=== PATIENT | female | born 1960 | race Caucasian/White ===

== ENCOUNTER 2020-05-04 14:36 | Emergency (ER) | payer BC ==
[2020-05-04 15:23] VITALS: BP 147/79; PULSE 89
--- NOTE | 2020-05-04 17:08 | EDM.PDOC ---
ED HPI GENERAL MEDICAL PROBLEM - General Chief Complaint: Gastrointestinal Problem Stated Complaint: BOWEL ISSUES Time Seen by Provider: 05/04/20 16:00 Source of Information: Reports: Patient History Limitations: Reports: No Limitations - History of Present Illness INITIAL COMMENTS - FREE TEXT/NARRATIVE: This is a 59-year-old female who presents with concerns of nausea vomiting, abdominal pain, and blood-tinged stool. She reports that she ate seafood yesterday evening. Then around midnight she developed nausea and vomiting followed by diffuse brown diarrhea. Towards the end of the evening into early this morning she noticed persistent blood-tinged to the stool. It did not turn the toilet water red. There is no tarry stool or melena. She otherwise feels like her symptoms are improving now, minimal pain, tolerating p.o. She has no fevers or chills. She is not anticoagulated. She has no comorbidities. - Related Data Allergies Allergy/AdvReac Type Severity Reaction Status Date / Time No Known Allergies Allergy Verified 05/04/20 15:27 Past Medical History - Past Surgical History GI Surgical History: Reports: Colonoscopy Female Surgical History: Reports: Hysterectomy Social & Family History - Tobacco Use Tobacco Use Status *Q: Never Tobacco User ED ROS GENERAL - Review of Systems Review Of Systems: See Below Constitutional: Reports: No Symptoms HEENT: Reports: No Symptoms Respiratory: Reports: No Symptoms Cardiovascular: Reports: No Symptoms Endocrine: Reports: No Symptoms GI/Abdominal: Reports: Diarrhea, Hematochezia, Vomiting : Reports: No Symptoms Musculoskeletal: Reports: No Symptoms Skin: Reports: No Symptoms Neurological: Reports: No Symptoms Psychiatric: Reports: No Symptoms Hematologic/Lymphatic: Reports: No Symptoms Immunologic: Reports: No Symptoms ED EXAM, GI/ABD - Physical Exam Exam: See Below Exam Limited By: No Limitations General Appearance: Alert, No Apparent Distress Ears: Normal External Exam Nose: Normal Inspection Throat/Mouth: Normal Inspection Head: Atraumatic, Normocephalic Neck: Normal Inspection Respiratory/Chest: No Respiratory Distress Cardiovascular: Regular Rate, Rhythm GI/Abdominal Exam: Soft, Non-Tender, No Distention Back Exam: Normal Inspection Extremities: Normal Inspection Neurological: Alert, Oriented, Normal Cognition, Normal Gait Psychiatric: Normal Affect, Normal Mood Skin Exam: Warm, Dry Course - Vital Signs Last Recorded V/S: Last Vital Signs Temp 36.3 C 05/04/20 15:34 Pulse 89 05/04/20 15:34 Resp 16 05/04/20 15:34 BP 147/79 H 05/04/20 15:34 Pulse Ox 98 05/04/20 15:34 - Re-Assessments/Exams Free Text/Narrative Re-Assessment/Exam: This is a 59-year-old female who presents with concerns of blood-tinged stool. This in the setting of likely gastroenteritis after seafood dinner last night. Overall symptoms have been improving. She has stable vitals and a reassuring physical exam. She did show me stool in the toilet here in the hospital, there is very small amount of blood tinge around it but no staining of the toilet bowl water. She is not anticoagulated. I suspect she has some mild hematochezia from her gastroenteritis. Given her overall picture of stability I think it safe to follow this as an outpatient. She knows to advance her diet slowly and return for worsening symptoms or signs of GI bleeding. 05/04/20 17:36 Departure - Departure Time of Disposition: 17:03 Disposition: Home, Self-Care 01 Clinical Impression: Gastroenteritis, Bloody stool - Discharge Information *PRESCRIPTION DRUG MONITORING PROGRAM REVIEWED*: No *COPY OF PRESCRIPTION DRUG MONITORING REPORT IN PATIENT SARAH: No Instructions: Food Choices to Help Relieve Diarrhea, Adult, Food Poisoning, [id number] Referrals: Rebekah Maya CNM [Primary Care Provider] - Forms: ED Department Discharge Additional Instructions: You likely have a small amount of blood in your stool from a GI infection. Since you are overall appearing well, with normal vitals and re-assuring exam, please continue to follow your symptoms at home as discussed. If your symptoms worsen (you have increasingly bloody or black tarry stool), please see a physici an. Sepsis Event Note (ED) - Evaluation Sepsis Screening Result: No Definite Risk - Focused Exam Vital Signs: Vital Signs Temp Pulse Resp BP Pulse Ox 05/04/20 15:34 36.3 C 89 16 147/79 H 98 05/04/20 15:22 36.3 C 89 16 147/79 H 98
== END 2020-05-04 17:28 | disposition home or self-care (01) ==
LOC: JP.ED 14:36
DX: K52.9 Noninfective gastroenteritis and colitis, unspecified (principal); R19.5 Other fecal abnormalities
CPT/HCPCS: 99283

== ENCOUNTER 2021-10-15 05:24 | Inpatient (IN) | payer BC ==
[2021-10-15] MEDS ORDERED: Sodium Chloride 0.9% 10 ML Syringe FLUSH PRN (06:16)
[2021-10-15] MEDS: Sodium Chloride 0.9% 1,000 ML IV SCH ×4 (06:27→23:04)
[2021-10-15] MEDS ORDERED: Lactated Ringers 1,000 ML IV SCH (06:30)
[2021-10-15 06:38] LABS: CORONAVIRUS COVID-19 NAA NEGATIVE (NEGATIVE)
[2021-10-15] MEDS ORDERED: Dexamethasone 4 MG/ML SDV IVPUSH ONE (06:42)
[2021-10-15] MEDS ORDERED: Vancomycin 1 GM SDV IV SCH (09:00)
[2021-10-15] MEDS: Acetaminophen 325 MG Tab PO PRN ×2 (09:19→18:01)
[2021-10-15] MEDS ORDERED: Piperacillin/Tazobactam 3.375 GM in Sodium Chloride 0.9% 50 ML IV SCH (09:30)
[2021-10-15] MEDS: Piperacillin/Tazobactam/Dext 3.375 GM in Premix Bag 1 BAG IV SCH ×3 (09:34→20:52)
[2021-10-15] MEDS: Enoxaparin 40 MG/0.4 ML Syringe SUBCUT SCH (09:34)
[2021-10-15] MEDS: Levofloxacin/Dextrose 5%-Water 750 MG in Premix Bag 1 BAG IV SCH (10:14)
[2021-10-15] MEDS ORDERED: Vancomycin 1.6 GM in Sodium Chloride 0.9% 250 ML IV ONE (12:00)
[2021-10-15] MEDS ORDERED: Albuterol 0.083% 2.5 MG/3 ML Neb Soln NEB PRN (13:55)
[2021-10-15] MEDS: Codeine/guaiFENesin 10-100 MG/5 ML Syrup 5 ML Cup PO PRN ×2 (16:52→23:04)
[2021-10-16] MEDS: Piperacillin/Tazobactam/Dext 3.375 GM in Premix Bag 1 BAG IV SCH ×4 (05:08→20:43)
[2021-10-16] MEDS: Acetaminophen 325 MG Tab PO PRN ×2 (05:14→14:37)
[2021-10-16] MEDS ORDERED: Potassium Chloride 20 MEQ Tab.ER PO ONE ×2 (09:00→17:00)
[2021-10-16] MEDS: Enoxaparin 40 MG/0.4 ML Syringe SUBCUT SCH (09:45)
[2021-10-16] MEDS: Levofloxacin/Dextrose 5%-Water 750 MG in Premix Bag 1 BAG IV SCH (10:59)
[2021-10-16] MEDS: Sodium Chloride 0.9% 1,000 ML IV SCH (11:17)
[2021-10-16] MEDS ORDERED: Iopamidol 755 Mg/ML 100 ML Bottle IV SCH (13:15)
[2021-10-16] MEDS ORDERED: Sodium Chloride 0.9% 100 ML IV SCH (13:15)
[2021-10-16] MEDS ORDERED: diphenhydrAMINE 50 MG/ML SDV IVPUSH ONE (15:00)
[2021-10-16] MEDS ORDERED: methylPREDNISolone Sodium Succinate 40 MG/1 ML SDV IVPUSH ONE (15:00)
[2021-10-17] MEDS: Piperacillin/Tazobactam/Dext 3.375 GM in Premix Bag 1 BAG IV SCH ×2 (04:23→09:52)
[2021-10-17] MEDS: Enoxaparin 40 MG/0.4 ML Syringe SUBCUT SCH (09:38)
[2021-10-17] MEDS: Codeine/guaiFENesin 10-100 MG/5 ML Syrup 5 ML Cup PO PRN ×3 (09:57→22:15)
[2021-10-17] MEDS: Acetaminophen 325 MG Tab PO PRN ×3 (09:57→22:14)
[2021-10-17] MEDS: Levofloxacin/Dextrose 5%-Water 750 MG in Premix Bag 1 BAG IV SCH (10:53)
[2021-10-17] MEDS ORDERED: Benzonatate 100 MG Cap PO PRN (14:09)
[2021-10-18] MEDS: Enoxaparin 40 MG/0.4 ML Syringe SUBCUT SCH (09:16)
[2021-10-18] MEDS: Levofloxacin/Dextrose 5%-Water 750 MG in Premix Bag 1 BAG IV SCH (09:17)
[2021-10-19] MEDS: Enoxaparin 40 MG/0.4 ML Syringe SUBCUT SCH (09:15)
[2021-10-19] MEDS: Levofloxacin/Dextrose 5%-Water 750 MG in Premix Bag 1 BAG IV SCH (09:16)
[2021-10-20] MEDS: Acetaminophen 325 MG Tab PO PRN (02:49)
[2021-10-20 08:16] VITALS: BP 128/65; PULSE 88
[2021-10-20] MEDS: Levofloxacin/Dextrose 5%-Water 750 MG in Premix Bag 1 BAG IV SCH (09:22)
[2021-10-20] MEDS: Enoxaparin 40 MG/0.4 ML Syringe SUBCUT SCH (09:22)
== END 2021-10-20 12:55 | disposition home or self-care (01) | DRG 720 ==
LOC: JP.ED 05:24 → JP.ICU 07:05
PROVIDERS: ADMIT Family Medicine; ATTEND Family Medicine
DX: A40.9 Streptococcal sepsis, unspecified (principal); J13 Pneumonia due to Streptococcus pneumoniae; J96.01 Acute respiratory failure with hypoxia; E87.1 Hypo-osmolality and hyponatremia; Z20.822 Contact with and (suspected) exposure to COVID-19
CPT/HCPCS: 0241U; 36415; 71045; 71275; 71275-26; 80048; 80053; 82728; 83605; 83615; 84132; 84145; 85025; 85027; 85379; 86140; 87040; 87184; 94640; 96374; 99283; 99285-25; A9270-GY; J1100; J1200; J1650; J1956; J2543; J2920; J3370; J3490; J7030; J7050; Q9967

== ENCOUNTER 2023-04-06 06:51 | Day surgery (SDC) | payer BC ==
[2023-04-06] MEDS ORDERED: Midazolam 1 MG/ML 2 ML SDV ONE (07:00)
[2023-04-06] MEDS ORDERED: Propofol 200 MG/20 ML SDV ONE (07:00)
[2023-04-06] MEDS ORDERED: fentaNYL 50 MCG/ML SDV ONE (07:00)
[2023-04-06] MEDS ORDERED: Lactated Ringers 1,000 ML IV SCH (07:30)
[2023-04-06 09:33] VITALS: BP 124/62; PULSE 49
== END 2023-04-06 09:35 | disposition home or self-care (01) ==
LOC: JP.SDS 06:51
PROVIDERS: ATTEND Student in an Organized Health Care Education/Training Program
DX: Z12.11 Encounter for screening for malignant neoplasm of colon (principal); K57.30 Diverticulosis of large intestine without perforation or abscess without bleeding; K64.4 Residual hemorrhoidal skin tags; Z80.0 Family history of malignant neoplasm of digestive organs; Z88.1 Allergy status to other antibiotic agents
CPT/HCPCS: 45378; J2250; J2704; J3010; J7120

== ENCOUNTER 2024-11-27 14:58 | Inpatient (IN) | payer BC ==
[2024-11-27] MEDS: Acetaminophen 325 MG Tab PO ONE (15:55)
[2024-11-27 16:58] LABS: HEMATOCRIT 39.5 % (34.3-46.0); HEMOGLOBIN 13.7 g/dL (11.2-15.5); MEAN CORPUSCULAR HEMOGLOBIN 32.4 pg (31.6-35.5); MEAN CORPUSCULAR HGB CONC 34.7 g/dL (31.6-35.5); MEAN CORPUSCULAR VOLUME 93.4 fL (81.4-99.0); PLATELET COUNT,PLT 131 K/uL (130-375); RED BLOOD CELL COUNT 4.23 M/uL (3.77-5.24); WHITE BLOOD CELL COUNT,WBC 4.8 K/uL (3.2-11.0)
[2024-11-27] MEDS: Iopamidol 755 Mg/ML 100 ML Bottle IV SCH (17:04)
[2024-11-27] MEDS: Sodium Chloride 0.9% 100 ML IV SCH (17:04)
[2024-11-27] MEDS: Sodium Chloride 0.9% 10 ML Syringe FLUSH ONE (17:05)
[2024-11-27] MEDS: Sodium Chloride 0.9% 1,000 ML IV ONE (17:21)
[2024-11-27 17:22] LABS: BAND ABSOLUTE MAN 0.72 K/uL; BAND PERCENT MAN 15 % (5-11); LYMPHOCYTES ABSOLUTE MAN 0.24 K/uL (0.8-3.3); LYMPHOCYTES PERCENT MAN 5 % (24-44); METAMYELOCYTE PERCENT MAN 2 %; MONOCYTES PERCENT MAN 2 % (2-6); NEUTROPHILS ABSOLUTE MAN 3.65 K/uL (1.0-7.6); SEG NEUTROPHILS PERCENT MAN 76 % (36-66)
[2024-11-27 17:28] LABS: ALANINE AMINOTRANSFERASE,ALT 58 U/L (12-78); ALBUMIN 3.3 g/dL (3.4-5.0); ALKALINE PHOSPHATASE 109 U/L (46-116); ASPARTATE AMNIOTRANSFERASE,AST 40 U/L (15-37); BILIRUBIN TOTAL 0.6 mg/dL (0.2-1.0); BLOOD UREA NITROGEN,BUN 12 mg/dL (7-18); CALCIUM 8.8 mg/dL (8.5-10.1); CARBON DIOXIDE,CO2 24 mmol/L (21-32); CHLORIDE,CL 96 mmol/L (100-108); CREATININE 0.8 mg/dL (0.6-1.0); EST CRCL DRUG DOSING (CG) 64.77 mL/min; ESTIMATED GFR 83 mL/min (>60); GLUCOSE RANDOM 163 mg/dL (74-106); POTASSIUM,K 3.9 mmol/L (3.6-5.2); PROTEIN TOTAL,TP 7.2 g/dL (6.4-8.2); SODIUM,NA 128 mmol/L (140-148)
[2024-11-27 17:32] LABS: A/G RATIO 0.9 (1.2-2.2); ANION GAP 11.9 mmol/L (5.0-14.0)
[2024-11-27] MEDS: Azithromycin 250 MG Tab PO SCH (17:46)
[2024-11-27] MEDS: cefTRIAXone 1 GM in Sodium Chloride 0.9% 50 ML IV ONE (17:46)
[2024-11-27] MEDS: Ibuprofen 600 MG Tab PO ONE (17:46)
[2024-11-27] MEDS ORDERED: LORazepam 2 MG/ML SDV IVPUSH PRN (18:03)
[2024-11-27] MEDS ORDERED: Ondansetron 4 MG/2 ML SDV IV PRN (18:03)
[2024-11-27] MEDS ORDERED: Sennosides/Docusate Sodium 50-8.6 MG Tab PO PRN (18:03)
[2024-11-27] MEDS ORDERED: Ondansetron 4 MG Tab.DIS PO PRN (18:03)
[2024-11-27] MEDS ORDERED: Morphine 2 MG/ML SYRINGE IVPUSH PRN (18:03)
[2024-11-27] MEDS ORDERED: Magnesium Hydroxide 400 MG/5 ML Susp 30 ML Cup PO PRN (18:03)
[2024-11-27] MEDS ORDERED: Acetaminophen/HYDROcodone 325-5 MG Tab PO PRN (18:03)
[2024-11-27] MEDS ORDERED: Albuterol 0.083% 2.5 MG/3 ML Neb Soln NEB PRN (18:03)
[2024-11-27] MEDS: cefTRIAXone 2 GM in Sodium Chloride 0.9% 50 ML IV SCH (19:42)
[2024-11-27] MEDS: Azithromycin 500 MG in Sodium Chloride 0.9% 250 ML IV SCH (19:42)
[2024-11-27] MEDS: Acetaminophen 325 MG Tab PO PRN (19:42)
[2024-11-27] MEDS: Albuterol/Ipratropium 3.0-0.5 MG/3 ML Neb Soln NEB SCH (21:20)
[2024-11-28] MEDS: Sodium Chloride 0.9% 1,000 ML IV SCH (03:35)
[2024-11-28 05:53] LABS: MEAN CORPUSCULAR HEMOGLOBIN 32.3 pg (31.6-35.5); MEAN CORPUSCULAR HGB CONC 34.2 g/dL (31.6-35.5); MEAN CORPUSCULAR VOLUME 94.5 fL (81.4-99.0); RED BLOOD CELL COUNT 4.02 M/uL (3.77-5.24); WHITE BLOOD CELL COUNT,WBC 5.1 K/uL (3.2-11.0)
[2024-11-28 06:08] LABS: A/G RATIO 0.7 (1.2-2.2); ALANINE AMINOTRANSFERASE,ALT 56 U/L (12-78); ALBUMIN 2.8 g/dL (3.4-5.0); ALKALINE PHOSPHATASE 104 U/L (46-116); ASPARTATE AMNIOTRANSFERASE,AST 36 U/L (15-37); BILIRUBIN TOTAL 0.5 mg/dL (0.2-1.0); BLOOD UREA NITROGEN,BUN 8 mg/dL (7-18); C-REACTIVE PROTEIN 19.68 mg/dL (<0.50); CALCIUM 8.6 mg/dL (8.5-10.1); CARBON DIOXIDE,CO2 26 mmol/L (21-32); CHLORIDE,CL 101 mmol/L (100-108); CREATININE 0.7 mg/dL (0.6-1.0); EST CRCL DRUG DOSING (CG) 74.02 mL/min; ESTIMATED GFR 97 mL/min (>60); GLUCOSE RANDOM 133 mg/dL (74-106); PROTEIN TOTAL,TP 6.7 g/dL (6.4-8.2); SODIUM,NA 133 mmol/L (140-148)
[2024-11-28] MEDS: Azithromycin 250 MG Tab PO SCH (08:44)
[2024-11-28] MEDS ORDERED: guaiFENesin/Dextromethorphan 100-10 MG/5 ML Soln 10 ML Cup PO PRN (09:56)
[2024-11-28] MEDS ORDERED: Benzonatate 100 MG Cap PO PRN (09:56)
[2024-11-28] MEDS: Ibuprofen 600 MG Tab PO PRN (10:37)
[2024-11-28] MEDS: diphenhydrAMINE 25 MG Cap PO PRN (10:38)
[2024-11-28] MEDS: cefTRIAXone 1 GM in Sodium Chloride 0.9% 50 ML IV SCH (16:49)
[2024-11-28] MEDS: Doxycycline 100 MG Cap PO SCH (21:04)
[2024-11-29 12:04] VITALS: BP 125/59; PULSE 86
== END 2024-11-29 12:45 | disposition home or self-care (01) | DRG 139 ==
LOC: JP.ED 14:58 → JP.MS 17:52
PROVIDERS: ADMIT Hospitalist; ATTEND Internal Medicine
DX: J18.9 Pneumonia, unspecified organism (principal); J96.01 Acute respiratory failure with hypoxia; Z88.1 Allergy status to other antibiotic agents; Z87.09 Personal history of other diseases of the respiratory system; Z87.448 Personal history of other diseases of urinary system; Z90.710 Acquired absence of both cervix and uterus
CPT/HCPCS: 36415; 71046; 71275; 80053; 83605; 85025; 85027; 86140; 87040; 94640; 94667; 96374; 99222; 99232; 99238; 99285; 99285-25; A9270-GY; J0696; J7030; Q9967